=== PATIENT | male | born 1950 | race Caucasian/White ===

== ENCOUNTER 2021-02-23 10:07 | Outpatient (REF) | payer MEDICARE, SELFPAY | END 2021-02-23 10:08 | disposition home or self-care (01) | LOC: HO.BBR 10:07 | PROVIDERS: Visit Provider Internal Medicine Medical Oncology | DX: Z13.89 Encounter for screening for other disorder (principal) ==

== ENCOUNTER 2021-03-12 10:05 | Outpatient (REF) | payer MEDICARE, SELFPAY | END 2021-03-12 10:06 | disposition home or self-care (01) | LOC: HO.BBR 10:05 | PROVIDERS: Visit Provider Internal Medicine Medical Oncology | DX: Z13.89 Encounter for screening for other disorder (principal) ==

== ENCOUNTER 2021-07-16 14:08 | Outpatient (REF) | payer MEDICARE, SELFPAY | END 2021-07-16 14:09 | disposition home or self-care (01) | LOC: HO.BBR 14:08 | PROVIDERS: Visit Provider Internal Medicine Medical Oncology | DX: Z13.89 Encounter for screening for other disorder (principal) ==

== ENCOUNTER 2021-08-09 12:44 | Outpatient (REF) | payer MEDICARE, SELFPAY | END 2021-08-09 12:45 | disposition home or self-care (01) | LOC: HO.BBR 12:44 | PROVIDERS: Visit Provider Internal Medicine Medical Oncology | DX: Z13.89 Encounter for screening for other disorder (principal) ==

== ENCOUNTER → 2021-10-01 13:51 | Outpatient (BNV) | payer MEDICARE, SELFPAY | PROVIDERS: Visit Provider Internal Medicine | DX: E83.110 Hereditary hemochromatosis (principal) | CPT/HCPCS: 99203; 99213; 99214; G2211 ==

== ENCOUNTER 2021-10-22 10:52 | Outpatient (REF) | payer MEDICARE, SELFPAY | END 2021-10-22 10:53 | disposition home or self-care (01) | LOC: HO.BBR 10:52 | PROVIDERS: Visit Provider Internal Medicine | DX: Z13.89 Encounter for screening for other disorder (principal) ==

== ENCOUNTER 2021-12-18 13:55 | Outpatient (REF) | payer MEDICARE, SELFPAY | END 2021-12-18 13:56 | disposition home or self-care (01) | LOC: HO.BBR 13:55 | PROVIDERS: Visit Provider Internal Medicine | DX: Z13.89 Encounter for screening for other disorder (principal) ==

== ENCOUNTER 2022-02-13 13:55 | Outpatient (REF) | payer MEDICARE, SELFPAY | END 2022-02-13 13:56 | disposition home or self-care (01) | LOC: HO.BBR 13:55 | PROVIDERS: Visit Provider Internal Medicine | DX: Z13.89 Encounter for screening for other disorder (principal) ==

== ENCOUNTER 2022-04-15 11:23 | Outpatient (REF) | payer MEDICARE, SELFPAY | END 2022-04-15 11:24 | disposition home or self-care (01) | LOC: HO.BBR 11:23 | PROVIDERS: Visit Provider Internal Medicine | DX: Z13.89 Encounter for screening for other disorder (principal) ==

== ENCOUNTER 2022-06-18 13:55 | Outpatient (REF) | payer MEDICARE, SELFPAY | END 2022-06-18 13:56 | disposition home or self-care (01) | LOC: HO.BBR 13:55 | PROVIDERS: Visit Provider Internal Medicine | DX: Z13.89 Encounter for screening for other disorder (principal) ==

== ENCOUNTER 2022-11-12 09:06 | Outpatient (REF) | payer MEDICARE, SELFPAY | END 2022-11-12 09:07 | disposition home or self-care (01) | LOC: HO.BBR 09:06 | PROVIDERS: Visit Provider Internal Medicine | DX: Z13.89 Encounter for screening for other disorder (principal) ==

== ENCOUNTER 2022-12-19 12:39 | Outpatient (REF) | payer MEDICARE, SELFPAY | END 2022-12-19 12:40 | disposition home or self-care (01) | LOC: HO.BBR 12:39 | PROVIDERS: Visit Provider Internal Medicine | DX: Z13.89 Encounter for screening for other disorder (principal) ==

== ENCOUNTER 2023-01-16 13:13 | Outpatient (REF) | payer MEDICARE, SELFPAY | END 2023-01-16 13:14 | disposition home or self-care (01) | LOC: HO.BBR 13:13 | PROVIDERS: Visit Provider Internal Medicine | DX: Z13.89 Encounter for screening for other disorder (principal) ==

== ENCOUNTER 2023-02-18 13:42 | Outpatient (REF) | payer MEDICARE, SELFPAY | END 2023-02-18 13:43 | disposition home or self-care (01) | LOC: HO.BBR 13:42 | PROVIDERS: Visit Provider Internal Medicine | DX: Z13.89 Encounter for screening for other disorder (principal) ==

== ENCOUNTER 2023-04-01 14:09 | Outpatient (REF) | payer MEDICARE, SELFPAY | END 2023-04-01 14:10 | disposition home or self-care (01) | LOC: HO.BBR 14:09 | PROVIDERS: Visit Provider Internal Medicine | DX: Z13.89 Encounter for screening for other disorder (principal) ==

== ENCOUNTER 2023-07-21 11:50 | Outpatient (REF) | payer MEDICARE, SELFPAY | END 2023-07-21 11:51 | disposition home or self-care (01) | LOC: HO.BBR 11:50 | PROVIDERS: PCP Internal Medicine; Visit Provider Internal Medicine | DX: Z13.89 Encounter for screening for other disorder (principal) ==

== ENCOUNTER 2023-09-30 14:08 | Outpatient (REF) | payer MEDICARE, SELFPAY | END 2023-09-30 14:09 | disposition home or self-care (01) | LOC: HO.BBR 14:08 | PROVIDERS: PCP Internal Medicine; Visit Provider Internal Medicine | DX: Z13.89 Encounter for screening for other disorder (principal) ==

== ENCOUNTER 2023-10-29 12:38 | Outpatient (REF) | payer MEDICARE, SELFPAY | END 2023-10-29 12:39 | disposition home or self-care (01) | LOC: HO.BBR 12:38 | PROVIDERS: PCP Internal Medicine; Visit Provider Internal Medicine | DX: Z13.89 Encounter for screening for other disorder (principal) ==

== ENCOUNTER 2023-11-26 12:42 | Outpatient (REF) | payer MEDICARE, SELFPAY | END 2023-11-26 12:43 | disposition home or self-care (01) | LOC: HO.BBR 12:42 | PROVIDERS: PCP Internal Medicine; Visit Provider Internal Medicine | DX: Z13.89 Encounter for screening for other disorder (principal) ==

== ENCOUNTER 2023-12-25 13:55 | Outpatient (REF) | payer MEDICARE, SELFPAY | END 2023-12-25 13:56 | disposition home or self-care (01) | LOC: HO.BBR 13:55 | PROVIDERS: PCP Internal Medicine; Visit Provider Internal Medicine | DX: Z13.89 Encounter for screening for other disorder (principal) ==

== ENCOUNTER 2024-01-23 13:44 | Outpatient (REF) | payer MEDICARE, SELFPAY | END 2024-01-23 13:45 | disposition home or self-care (01) | LOC: HO.BBR 13:44 | PROVIDERS: PCP Internal Medicine; Visit Provider Internal Medicine | DX: Z13.89 Encounter for screening for other disorder (principal) ==

== ENCOUNTER 2024-02-24 13:55 | Outpatient (REF) | payer MEDICARE, SELFPAY | END 2024-02-24 13:56 | disposition home or self-care (01) | LOC: HO.BBR 13:55 | PROVIDERS: PCP Internal Medicine; Visit Provider Internal Medicine | DX: Z13.89 Encounter for screening for other disorder (principal) ==

== ENCOUNTER 2024-03-26 10:12 | Outpatient (REF) | payer MEDICARE, SELFPAY | END 2024-03-26 10:13 | disposition home or self-care (01) | LOC: HO.BBR 10:12 | PROVIDERS: PCP Internal Medicine; Visit Provider Internal Medicine | DX: Z13.89 Encounter for screening for other disorder (principal) ==

== ENCOUNTER 2024-04-21 11:02 | Outpatient (REF) | payer MEDICARE, SELFPAY | END 2024-04-21 11:03 | disposition home or self-care (01) | LOC: HO.BBR 11:02 | PROVIDERS: PCP Internal Medicine; Visit Provider Internal Medicine | DX: Z13.89 Encounter for screening for other disorder (principal) ==

== ENCOUNTER 2024-06-16 13:54 | Outpatient (REF) | payer MEDICARE, SELFPAY | END 2024-06-16 13:55 | disposition home or self-care (01) | LOC: HO.BBR 13:54 | PROVIDERS: PCP Internal Medicine; Visit Provider Internal Medicine | DX: Z13.89 Encounter for screening for other disorder (principal) ==

== ENCOUNTER 2024-08-19 08:59 | Outpatient (REF) | payer MEDICARE, SELFPAY | END 2024-08-19 09:00 | disposition home or self-care (01) | LOC: HO.BBR 08:59 | PROVIDERS: PCP Internal Medicine; Visit Provider Internal Medicine | DX: Z13.89 Encounter for screening for other disorder (principal) ==

== ENCOUNTER 2025-06-21 11:17 | Outpatient (REF) | payer MEDICARE, SELFPAY ==
--- OUTSIDE RECORDS SUMMARY | 2025-03-16 07:00 | XMS_ITS ---
Author Organization [facility] Address [address] [place] [phone] Care Team Providers Care Email Marketing Manager Name Role Phone Kymberly Garcia Primary Care Provider Kannan Arndt [phone] REASON FOR VISIT ROF Encounters Encounter Location Date Provider Diagnosis [address] [id number] 03/16/2025 Kannan Arndt Plan Of Treatment Next Appt Details Provider Name:Kymberly montes de oca, 08/10/2025 11:30:00 AM, [address] [place] [address], [phone], Provider Name:Kannan Arndt, 11/02/2025 09:00:00 AM, [address] [place] [address], [phone], Progress Notes * Chauncey KHANDOB:1950 (75 yo M)Acc No.[id number]:03/16/2025 Progress Notes Patient: Chauncey LR Provider: Rocio Arndt ND :1950 A ge:74 Y S ex:Male Date:03/16/2025 Address:[address] [id number] Pcp:Kymberly Garcia Subjective: * Chief Complaints: * 1 . ROF. * Medical History: Objective: * Vitals: Assessment: Plan: * Treatment: * * Electronic signature of Danny Arndt ND on 06/21/2025 at 12:13 PM EDT Sign off status: Pending * Provider: Rocio Arndt, ND Date: 0 03/16/2025 Generated for Douglas ahuja/Airam/Ubaldo on: 0 06/21/2025 12:13 PM EDT
--- OUTSIDE RECORDS SUMMARY | 2025-06-21 12:13 | XMS_ITS | Encounter Summary ---
Author Organization [facility] Address [address] [place] [phone] Phone Care Team Providers Care Clinical Nurse Reviewer Name Role Phone Morenita Sandoval MD Primary Care Provider Reason for Referral * MRI/CAT Scan - Closed Specialty Diagnoses / Procedures Referred By Contac t Referred To Contact Procedures MRI Abdomen Outside (No Interpretation) System, Provider Not In, [facility] [address] [place] [address] Referral ID Status Reason Start Date Expiration Date Visits Re quested Visits Authorized [id number] Closed 08/21/2018 08/21/2019 1 1 Encounter Details Date Type Department Care Team ([facility] Contact Info) Description 08/21/2018 Ancillary Orders [facility] Radiology [address] [place] [address] System, Provider Not In, [place] [address] Social History Tobacco Use Types Packs/Day Years Used Date Smoking Tobacco: Former Cigarettes 3 8 0 04/09/1968 - 04/09/1976 Smokeless Tobacco: Never Comments:quit 40 years ago Alcohol Use Standard Drinks/Week Comments Yes 13 (1 standard drink = 0.6 oz pu re alcohol) Sex and Gender Information Value Date Recorded Sex Assigned at Not on file Legal Sex Male 3:17 PM EST Gender Identity Not on file Sexual Orientation Not on file documented as of this encounter Plan of Treatment Upcoming Encounters Date Type Department Care Team (Late st Contact Info) Description 08/02/2025 9:50 AM EDT Office Visit [facility]ty [address] [place] [address] Tre Braxton MD [address] [place] [address], [facility] [address] [place] [address] [email or web address] documented as of this encounter Results * MRI Abdomen Outside (No Interpretation) (08/18/2018 12:00 AM EDT) Narrative PARESH - 08/21/2018 9:37 AM EDT This study is for PACS storage only and not for interpretation. us Provider Not In System PhD IMG OUTSIDE IMAGING W /OUT INTERPRETATION Final Result [facility] documented in this encounter Visit Diagnoses Not on filedocumented in this encounter Care Teams Clinical Nurse Reviewer Relationship Specialty Start Date End Date Morenita Sandoval MD [address] [place] [address] PCP - General Internal Medicine 11/11/17 documented as of this encounter Additional Source Comments The information contained in this document represents components of the legal health record. It is not the complete legal health record.[facility]
--- OUTSIDE RECORDS SUMMARY | 2025-06-21 12:13 | XMS_ITS | Clinical Summary ---
Author Organization [facility] Address [address] [phone] Phone Care Team Providers Care Diesel Power Mechanic Name Role Phone Morenita Sandoval MD Primary Care Provider [phone] Allergies Active Allergy Reactions Criticality Noted Date Comments Bactrim (Sulfamethoxazole-Trimethoprim) Fever 11/21/2015 Medications cholecalciferol 4,000 unit Tab Take 4,000 Units by mouth daily. Active glucosamine-surinder droitin 500-400 mg Cap Take 1 capsule by mouth 2 (two) times a day. Active therapeutic multivitamin tablet Take 1 tablet by mouth daily. Active acetaminophen (TYLENOL) 325 mg tablet Take 2 tablets (650 mg total) by mouth every 4 (four) hours as needed for mild pain. 0 6 Active b complex vitamins capsule Take 1 capsule by mouth daily. Active omega 7-iad-lve-fish oil 1,000 mg (120 mg-180 mg) Cap Take 1 capsule by mouth daily. Active saw palmetto 160 mg Cap Take 2 capsules by mouth 2 (two) times a day. 180 each 3 8 Active ciprofloxacin HCl (CIPRO) 500 MG tablet TAKE 1 TABLET (500 MG TOTAL) BY MOUTH ONCE FOR 1 DOSE. 0 9 Active tamsulosin (FLOMAX) 0.4 mg Cap TAKE ONE CAPSULE BY MOUTH EVERY DAY 90 capsule 3 9 Active Additional Information Patient not taking.Reported on 02/25/2023 finasteride (PROSCAR) 5 mg tablet Take 1 tablet (5 mg total) by mouth daily. 90 tablet 3 0 Active Additional Information Patient not taking.Reported on 02/25/2023 losartan (COZAAR) 25 MG tablet Take 25 mg by mouth daily. Active tadalafiL (CIALIS) 5 MG tabletIndication s:benign prostatic hyperplasia with lower urinary tract sx,erectile dysfunction Take 1 tab po qd Indications: enlarged prostate with urination problem, the inability to have an erection 90 tablet 3 4 Active Active Problems Problem Noted Date Diagnosed Date Preop exam for internal medicine 02/02/2016 Assessment & Plan (02/02/2016 11:26 AM EDT): Cardiac Risk Estimation: Patient has no unstable cardiac disease, revised cardiac risk index = 0, risk for major cardiac complications is 0.4%, Guillaume/NSQIP estimated risk of perioperative LA or cardiac arrest is <1%, can proceed to surgery without further cardiac risk stratification. Deep vein thrombosis prophylaxis: per orthopedic protocol Right knee pain 02/02/2016 Overview (02/02/2016): Right knee, medial aspect, worse in past three months, on aleve prn. Osteoarthritis 02/02/2016 Overview (02/02/2016): hands Hemochromatosis 02/02/2016 Overview (02/02/2016): On phlebotomy every two months since 2007 Assessment & Plan (02/02/2016 11:27 AM EDT): Patient has no known complications such as liver or cardiac disease. Obstructive sleep apnea on CPAP 02/02/2016 Overview (02/02/2016): On CPAP since 2005 Assessment & Plan (02/02/2016 11:27 AM EDT): Increased risk for hypoxia, hypercapnia, please minimize sedation and narcotics. Encounters Date Type Department Care Team Description 04/22/2025 11:35 AM EDT - 04/22/2025 11:59 PM EDT Hospital Encounter [facility] Phlebotomy [address] [place] [address] Discharge Disposition: Home or Self Care 04/22/2025 Telephone [facility] Urology [address] [address] Mike Lin 04/21/2025 Telephone [facility] Urology [address] [address] Bailee Lewis trouble urinating from Last 3 Months Family History Medical History Relation Comments Hemochromatosis Brother Hemochromatosis Sister Deep vein thrombosis Neg Hx Relation Status Comments Brother Alive Sister Alive Social History Tobacco Use Types Packs/Day Years Used Date Smoking Tobacco: Former Cigarettes 3 8 0 04/09/1968 - 04/09/1976 Smokeless Tobacco: Never Tobacco Cessation:Counseling Given: Not Answered Comments:quit 40 years ago Alcohol Use Standard Drinks/Week Comments Yes 13 (1 standard drink = 0.6 oz pu re alcohol) Education Answer Date Recorded Are you interested in more education? Not on gwendolyn e 02/21/2023 Are you concerned about learning? Not on file 02/21/2023 No 02/21/2023 No 02/21/2023 Digital Access Answer Date Recorded No 03/23/2023 No 03/23/2023 Reliable internet access at home? Not on file 03/23/2023 Device with a working camera? Not on file Sex and Gender Information Value Date Recorded Sex Assigned at Not on file Legal Sex Male 3:17 PM EST Gender Identity Not on file Sexual Orientation Not on file Last Filed Vital Signs Vital Sign Reading Time Taken Comments Blood Pressure 146/73 07/20/2024 9:21 AM EDT Pulse 66 07/20/2024 9:21 AM EDT Temperature 36.6 C (97.9 F) 02/13/2016 11:09 AM EDT Respiratory Rate 16 02/13/2016 11:09 AM EDT Oxygen Saturation 97% 02/13/2016 11:26 AM EDT Inhaled Oxygen Concentration - - Weight 88.5 kg (195 lb) 07/20/2024 9:21 AM EDT Height 177.8 cm (5' 10 ) 07/20/2024 9:21 AM EDT Body Mass Index 27.98 07/20/2024 9:21 AM EDT Plan of Treatment Upcoming Encounters Date Type Department Care Team (Late st Contact Info) Description 08/02/2025 9:50 AM EDT Office Visit [facility]ispecialty [address] [place] [address] Tre Braxton MD [address] [place] [address] [address] [place] [address] [email or web address] Health Maintenance Due Date Last Done Comments Adult Td,Tdap Booster 1950 CREATININE LEVEL 1950 LIPID PANEL 1949 POTASSIUM LEVEL 1950 DEPRESSION SCREENING 1961 HEPATITIS C SCREENING 1967 PNEUMOCOCCAL VACCINES (50+ years) (1 of 1 - PCV) 1999 ZOSTER VACCINES (1 of 2) 1999 RSV VACCINE (1 - 1-dose 75+ series) 2024 COVID-19 VACCINE (4 - 2023-2 5 season) 2024 09/11/2021, 01/08/2021, 12/11/2020 SMOKING STATUS SCREENING (On ce After 26 Yrs) Completed 07/20/2024 HEPATITIS A VACCINES Aged Out No long er eligible based on patient's age to complete this topic HIB VACCINES Aged Out No longer eligi ble based on patient's age to complete this topic MENINGOCOCCAL VACCINES (ACWY) Aged Out No longer eligible based on patient's age to complete this topic MENINGOCOCCAL VACCINES (B) Aged Out N o longer eligible based on patient's age to complete this topic Medical Devices Not on file Procedures Procedure Name Priority Date/Time Associated Diagnosis Comments URINALYSIS Routine 04/22/2025 12:53 PM EDT Dysuria URINE CULTURE Routine 04/22/2025 12:53 PM EDT Dysuria from Last 3 Months Results * Urine Culture (04/22/2025 12:53 PM EDT) Special Requests None 04/22/2025 12:27 PM EDT [facility] Urine Culture NO GROWTH 04/23/2025 1:02 PM EDT [facility] Urine (Urine) 04/22/2025 12: 53 PM EDT 04/22/2025 4:23 PM EDT Tre Brxaton MD MICROBIOLOGY - GENERAL ORDERA BLES Final Result Performing Organization Address [facility] de Phone Number [facility] [address] [place] [address] [facility] [address] [place] [address] * Urinalysis (04/22/2025 12:53 PM EDT) COLOR Yellow Yellow [facility] CLARITY Clear Clear [facility] GLUCOSE Negative Negative [facility] BILI Negative Negative [facility] KETONES Negative Negative [facility] SPECIFIC GRAVITY 1.016 1.003 - 1.035 [facility] BLOOD Negative Negative [facility] PH 6.5 4.5 - 8.0 [facility] Protein-UA Negative Negative [facility] UROBILINOGEN Negative Negative [facility] NITRITE Negative Negative [facility] Leukocyte esterase, ur Negative Negative [facility] Urine (Urine) 04/22/2025 12: 53 PM EDT 04/22/2025 1:00 PM EDT Tre Braxton MD URINE ORDERABLES Final Result Performing Organization Address [facility] de Phone Number [facility] [address] [place] [address] from Last 3 Months Insurance [employer] PPO MEDICARE REPLACEMENT [employer] PPO MEDICARE REPLACEMENT [employer] PPO MEDICARE REPLACEMENT [employer] PPO MEDICARE REPLACEMENT [employer] PPO MEDICARE REPLACEMENT [employer] PPO MEDICARE REPLACEMENT [employer] PPO MEDICARE REPLACEMENT [employer] PPO MEDICARE REPLACEMENT [employer] PPO MEDICARE REPLACEMENT Care Teams Diesel Power Mechanic Relationship Specialty Start Date End Date Morenita Sandoval MD [address] [facility] [address] [place] [address] PCP - General Internal Medicine 11/11/17 Additional Source Comments The information contained in this document represents components of the legal health record. It is not the complete legal health record.[facility]
--- OUTSIDE RECORDS SUMMARY | 2025-06-21 12:13 | XMS_ITS | Clinical Summary ---
Author Organization [address] Address [address] [place] [address] Care Team Providers Care Prune Washer Name Role Phone Pcp, Does Not Have A Primary Care Provider Unava ilable Allergies Active Allergy Reactions Criticality Noted Date Comments Sulfamethoxazole-Trimethoprim Fever 2015 Medications losartan (COZAAR) 25 mg tablet Take 1 tablet (25 mg total) by mouth daily. Active cholecalciferol , vitamin D3, 100 mcg (4,000 unit) Tab Take 4,000 Units by mouth daily. Active DOCOSAHEXAENOIC ACID ORAL Take 1 capsule by mouth daily. Active multivitamin (THERAGRAN) tablet Take 1 tablet by mouth daily. Active tadalafiL (CIALIS) 5 mg tablet Take 1 tablet (5 mg total) by mouth daily. Active VITAMIN B COMPLEX ORAL Take 1 capsule by mouth daily. Active Family History Relation Name Status Comments Father Mother Social History Tobacco Use Types Packs/Day Years Used Date Smoking Tobacco: Never Smokeless Tobacco: Never Tobacco Cessation:Counseling Given: Not Answered Alcohol Use Standard Drinks/Week Comments Yes 0 (1 standard drink = 0.6 oz pur e alcohol) Sex and Gender Information Value Date Recorded Sex Assigned at Not on file Legal Sex Male 1:31 PM EST Gender Identity Not on file Sexual Orientation Not on file Last Filed Vital Signs Vital Sign Reading Time Taken Comments Blood Pressure 132/70 12/07/2024 9:13 AM EST Pulse 84 12/07/2024 9:13 AM EST Temperature 37.2 C (99 F) 12/07/2024 9:13 AM EST Respiratory Rate 16 12/07/2024 9:13 AM EST Oxygen Saturation 95% 12/07/2024 9:13 AM EST Inhaled Oxygen Concentration - - Weight 90.7 kg (200 lb) 12/07/2024 9:13 AM EST Height - - Body Mass Index - - Plan of Treatment Health Maintenance Due Date Last Done Comments HIV screening 1962 Hepatitis C screening 1967 Tetanus adult (Td q 10,TDAP once) 1969 Lipid disorder screening 1989 Diabetes screening 1994 Pneumococcal Vaccine (50+ years) (1 of 1 - PCV) 1999 Shingles vaccine (Shingrix) (1 of 2 - Shingrix (RZV) 2 Dose Standard Series) 1999 RSV Immunization (1 - 1-dose 75+ series) 2024 Covid-19 vaccine series (2023- season) 2024 01/08/2021, 12/11/2020 Influenza vaccine 06/27/2025 Colon cancer screening, Colonoscopy Discontinued Meningococcal Vaccine Aged Out No nicki tracy eligible based on patient's age to complete this topic Insurance [facility] Care Teams Prune Washer Relationship Specialty Start Date End Date Pcp, Does Not Have A PCP - General 12/07/24
--- OUTSIDE RECORDS SUMMARY | 2025-06-21 12:13 | XMS_ITS | Encounter Summary ---
Author Organization [facility] Address [address] [facility] [address] [place] [address] Phone Care Team Providers Care Outreach Director Name Role Phone Morenita Sandoval MD Primary Care Provider [phone] Reason for Visit * Reason Onset Date Comments trouble urinating 04/21/2025 Encounter Details Date Type Department Care Team ([facility] st Contact Info) Description 04/21/2025 Telephone [facility] Urology [address] [facility] [address] [place] [address] Bailee Lewis [address] [place] [address] [email or web address] trouble urinating Social History Tobacco Use Types Packs/Day Years [...] on file documented as of this encounter Progress Notes * Tara Campbell RN - 04/21/2025 1:20 PM EDT Situation Chauncey Vazquez Kaylin called today to report trouble urinating Background Chauncey is being follow for BPH Assessment/Action Patient reports following; UTI Symptoms: When did symptoms start? Few days ago Dysuria- Yes=1 Increased frequency of urination- Yes=1 Urgency to urinate - Yes=1 Hematuria - No=0 Cloudy or foul-smelling urine- No=0 Suprapubic pain or lower abdominal discomfort - No=0 Flank pain No=0 Fever - No=0 Nausea/ Vomiting - No=0 Trouble urinating or unable to urinate - Yes=1 Stream is weaker than normal Change in BM's - No=0 Medication/Interventions Patient is still taking his cialis Teaching The following instructions reviewed. Increase fluids, monitor symptoms Recommendation/Response Pt advised to hydrate/ increase fluids Pt will call with any changes Pt going to the lab to leave urine Monitor for worsening sx and to f/u [facility] ED precautions reviewed ( thick bloody urine, unable to void/ retaining, fever, n/v and unable to keep fluids down) documented in this encounter Plan of Treatment Upcoming Encounters Date Type Department Care Team (Late st Contact Info) Description 08/02/2025 9:50 AM EDT Office Visit [address] [address] Tre Braxton MD [address] [place] [phone] [email or web address] documented as of this encounter Results * Urine Culture (04/22/2025 12:53 PM EDT) Special Requests None 04/22/2025 12:27 PM EDT [facility] Urine Culture NO GROWTH 04/23/2025 1:02 PM EDT [facility] Urine (Urine) 04/22/2025 12: 53 PM EDT 04/22/2025 4:23 PM EDT Tre Braxton MD MICROBIOLOGY - GENERAL ORDERA BLES Final Result Performing Organization Address City/[facility] Co de Phone Number [facility] [address] [place] [address] [facility] [address] [place] [address] * Urinalysis (04/22/2025 12:53 PM EDT) COLOR Yellow Yellow [facility] CLARITY Clear Clear [facility] GLUCOSE Negative Negative [facility] BILI Negative Negative [facility] KETONES Negative Negative [facility] SPECIFIC GRAVITY 1.016 1.003 - 1.035 [facility] BLOOD Negative Negative [facility] PH 6.5 4.5 - 8.0 [facility] Protein-UA Negative Negative [facility] UROBILINOGEN Negative Negative [facility] NITRITE Negative Negative [facility] Leukocyte esterase, ur Negative Negative [facility] Urine (Urine) 04/22/2025 12: 53 PM EDT 04/22/2025 1:00 PM EDT Tre Braxton MD URINE ORDERABLES Final Result Performing Organization Address [facility] [[email or web address]] de Phone Number [facility] [address] [place] [address] documented in this encounter Visit Diagnoses Diagnosis Dysuria- Primary documented in this encounter Care Teams Outreach Director Relationship Specialty Start Date End Date Morenita Sandoval MD [address] [place] [address] PCP - General Internal Medicine 11/11/17 documented as of this encounter Additional Source Comments The information contained in this document represents components of the legal health record. It is not the complete legal health record.[facility]
--- OUTSIDE RECORDS SUMMARY | 2025-06-21 12:13 | XMS_ITS | Clinical Summary ---
Author Organization [facility] Address [address] [place] [address] Care Team Providers Care Weaver Needle Loom Name Role Phone Kannan Arndt ND Primary Care Provider [phone] Allergies Active Allergy Reactions Criticality Noted Date Comments Sulfamethoxazole-Trimethoprim 2017 Medications Medication Sig Dispensed Refills Start Date End Date Status Multiple Vitamins-Minerals (MULTIVITAMIN PO) Take by mouth daily. 0 Active Cholecalciferol (VITAMIN D) 2000 units tablet Take 2,000 Units by mouth daily. 0 Active [place]-3 Fatty Acids (FISH OIL PO) Take by mouth daily. 0 Active HAW[place]ORN PO Take by mouth daily. 0 Active Saw [place], Serenoa repens, (SAW PALMETTO PO) Take by mouth daily. 0 Active Active Problems Problem Noted Date Diagnosed Date Hereditary hemochromatosis 01/28/2018 Obstructive sleep apnea on CPAP 02/02/2016 Overview: Overview: On CPAP since 2005 Last Assessment & Plan: Increased risk for hypoxia, hypercapnia, please minimize sedation and narcotics. Osteoarthritis 02/02/2016 Overview: Overview: hands Social History Tobacco Use Types Packs/Day Years Used Date Smoking Tobacco: Former Smokeless Tobacco: Never Alcohol Use Standard Drinks/Week Comments Yes 0 (1 standard drink = 0.6 oz pur e alcohol) Sex and Gender Information Value Date Recorded Sex Assigned at Not on file Gender Identity Not on file Sexual Orientation Not on file Job Start Date Occupation Industry Not on file Not on file Not on file Last Filed Vital Signs Vital Sign Reading Time Taken Comments Blood Pressure 137/79 03/30/2021 11:37 AM EDT Pulse 70 03/30/2021 11:37 AM EDT Temperature 36.4 C (97.5 F) 03/30/2021 11:37 AM EDT Respiratory Rate - - Oxygen Saturation 99% 03/30/2021 11:37 AM EDT Inhaled Oxygen Concentration - - Weight 90.5 kg (199 lb 9.6 oz) 03/30/2021 11:37 AM EDT Height 180.3 cm (5' 11 ) 03/30/2021 11:37 AM EDT Body Mass Index 27.84 03/30/2021 11:37 AM EDT Plan of Treatment Health Maintenance Due Date Last Done Comments Hepatitis C Screening 1950 COVID-19 Vaccine (#1) 1949 Depression Screening 1961 Preventative Health Evaluation 1967 DTap / Tdap / Td (1 - Tdap) 1968 Shingrix-Zoster Vaccine (1 of 2) 1999 Fall Risk Assessment 2014 Pneumococcal Vaccine (1 of 1 - PCV) 2014 RSV Adult > 60+ Yrs or Pregn ant (1 - 1-dose 75+ series) 2024 Influenza Vaccine (#1) 2025 Hepatitis B Vaccines Aged Out No long er eligible based on patient's age to complete this topic RSV Ped < 20 months Aged Out No longe r eligible based on patient's age to complete this topic Care Teams Weaver Needle Loom Relationship Specialty Start Date End Date Kannan Arndt ND [address] [place] [address] PCP - General Pediatrics 07/26/24
--- OUTSIDE RECORDS SUMMARY | 2025-06-21 12:13 | XMS_ITS | Patient Health Record ---
Author Organization [facility] Address [address], [place] [id number] Care Team Providers Care Cognos Bi Developer Name Role Phone Joannetavon Kymberly Primary Care Provider [phone] Kannan Arndt Unavailable [phone] Miguelito Allred Unavailable [phone] Allergies Allergen (clinical drug ingredient) Drug/Non Drug Allergy documented on EMR Reaction Allergy Type Onset Date Status sulfamethoxazole / trimethoprim Bactrim Unknown Drug Allergy Active Results Component Value Reference Range Notes CARDIO IQ(R) INSULIN RESISTA NCE PANEL WITH SCORE Reviewed date:05/18/2025 04:12:25 PM Interpretation: Performing Lab:EZ, [facility],[address] [facility] Ciarra Cantu MD,PhD,PRASANNA Notes/Report: Received Date: 0; 0; 0; 0; 0; 0; 0 FASTING:YES FASTING: YES INSULIN, INTACT, LC/MS/MS 6 < OR = 16 uIU/m L Insulin concentration can be converted to pmol/L by applying the conversion factor: 1 uIU/mL = 5.97 pmol/L For additional information, please refer to http://education.[employer].com/faq/DKW390 (This link is being provided for informational/educational purposes only.) This test was developed and its analytical performance characteristics have been determined by [facility]. It has not been cleared or approved by the FDA. This assay has been validated pursuant to the CLIA regulations and is used for clinical purposes. C-PEPTIDE, LC/MS/MS 2.27 0.68-2.16 ng/mL INSULIN RESISTANCE SCORE 34 < OR = 66 Insulin Sensitive < 33; Impaired Insulin Sensitivity 33-66; Insulin Resistant >66 A score below 33 is optimal. The insulin resistance score correlates with steady state glucose levels achieved during an insulin suppression test, a standard research test for insulin resistance. The score is based on insulin and C-peptide results (Emmanuel F, Chong D, Maico ARROYO, et al. Insulin resistance probability scores for apparently healthy individuals. J Endocr Soc. 2018;2(9):1206-1575). For additional information, please refer to http://education.PingCo.com/faq/RXQ542 (This link is being provided for informational/educational purposes only.) This test was developed and its analytical performance characteristics have been determined by [facility]. It has not been cleared or approved by the FDA. This assay has been validated pursuant to the CLIA regulations and is used for clinical purposes. CARDIO IQ(R) ADVANCED LIPID PANEL AND INFLAMMATION PANEL Reviewed date:05/18/2025 04:12:25 PM Interpretation: Performing Lab:[facility] [place] [address], [address], [id number] Abner Almodovar Notes/Report: Received Date: 0; 0; 0; 0; 0; 0; 0 FASTING:YES FASTING: YES CHOLESTEROL, TOTAL 190 <200 mg/dL HDL CHOLESTEROL 51 >39 mg/dL TRIGLYCERIDES 115 <150 mg/dL LDL-CHOLESTEROL 117 <100 mg/dL (calc) Desirable range <100 mg/dL for primary prevention; <70 mg/dL for patients with CHD or diabetic patients with >= 2 CHD risk factors. LDL-C is now calculated using the Joshua-Gibson calculation, which is a validated novel method providing better accuracy than the Friedewald equation in the estimation of LDL-C. Joshua SS et al. MJ. 2013;310(19): 8026-4303 (http://education.Covertix.Calendly/faq/BZN200) LDL-C is now calculated using the Joshua-Gibson calculation, which is a validated novel method providing better accuracy than the Friedewald equation in the estimation of LDL-C. Joshua PORRAS et al. MJ. 2013;310(19): 1524-4733 (http://education.Covertix.com/faq/YJQ593) CHOL/HDLC RATIO 3.7 <5.0 calc NON HDL CHOLESTEROL 139 <130 mg/dL (calc) For patients with diabetes plus 1 major ASCVD risk factor, treating to a non-HDL-C goal of <100 mg/dL (LDL-C of <70 mg/dL) is considered a therapeutic option. For patients with diabetes plus 1 major ASCVD risk factor, treating to a non-HDL-C goal of <100 mg/dL (LDL-C of <70 mg/dL) is considered a therapeutic option. LDL PARTICLE NUMBER 1916 <1138 nmol/L Relative Risk: Optimal <1138; Moderate 9837-1746; High >1409. Male and Female Reference Range: 1016 to 2185 nmol/L. LDL SMALL 492 <142 nmol/L Relative Risk: Optimal <142; Moderate 142-219; High >219. Male Reference Range: 123 to 441 nmol/L; Female Reference Range: 115 to 386 nmol/L. LDL MEDIUM 398 <215 nmol/L Relative Risk: Optimal <215; Moderate 215-301; High >301. Male Reference Range: 167 to 485 nmol/L; Female Reference Range: 121 to 397 nmol/L. HDL LARGE 6293 >6729 nmol/L Relative Risk: Optimal >6729; Moderate 1376-0876; High <5353. Male Reference Range: 4334 to 25011 nmol/L; Female Reference Range: 5038 to 427[address] nmol/L. LDL PATTERN B A Pattern Relative Risk: Optimal Pattern A; High Pattern B. Reference Range: Pattern A. LDL PEAK SIZE 212.7 >222.9 Angstrom This test was developed and its analytical performance characteristics have been determined by [facility]. It has not been cleared or approved by the U.S. Food and Drug Administration. This assay has been validated pursuant to the CLIA regulations and is used for clinical purposes. Relative Risk: Optimal >222.9; Moderate 222.9-217.4; High <217.4. Male and Female Reference Range: 216 to 234.3 Angstrom. Adult cardiovascular event risk category cut points (optimal, moderate, high) are based on an adult [place] reference population plus two large cohort study populations. Association between lipoprotein subfractions and cardiovascular events is based on Elayne et al. ATVB.2009;29:1975. For additional information, please refer to http://education.PingCo.com/faq/IYU501 (This link is being provided for informational/educational purposes only.) APOLIPOPROTEIN B 99 <90 mg/dL Reference Range <90 Risk Category: Optimal <90 Moderate 90-129 High > or = 130 A desirable treatment target may be <80 mg/dL or lower depending on the risk category of the patient including patients on lipid lowering therapies, patients with ASCVD, diabetes with >1 risk factors, Stage 3 or greater CKD with albuminuria, or heterozygous familial hypercholesterolemia. ApoB relative risk category cut points are based on AACE/BRETT and ACC/AHA recommendations (Ruben SM, et al. 2019. doi:10.1016/j.jacc.2018.11. 002; Melissa Y, et al. 2020. doi:10.0242/WM-3582-5394). LIPOPROTEIN (a) <10 <75 nmol/L Verified by repeat analysis. Risk: Optimal <75 nmol/L; Moderate 75-125 nmol/L; High >125 nmol/L. Cardiovascular event risk category cut points (optimal, moderate, high) are based on Jimbo Degroot JACC 2017;69:692-711. HS CRP 1.3 <1.0 mg/L Reference Range: Optimal <1.0 mg/L, according to Gato MEDLEY et al. Endocr Pract.2017;23(Suppl 2):1-87. The AHA/CDC Guidelines recommend hs-CRP ranges for identifying Relative Cardiovascular Risk in patients ages >17 years: <1.0 mg/L Lower Relative Cardiovascular Risk; 1.0-3.0 mg/L Average Relative Cardiovascular Risk; 3.1-10.0 mg/L Higher Relative Cardiovascular Risk. If result is between 3.1 and 10.0 mg/L, consider retesting in 1-2 weeks to exclude a benign transient elevation secondary to infection or inflammation from the baseline CRP value. Persistent elevations of >10.0 mg/L upon retesting may be associated with infection and inflammation. The AHA/CDC recommendations are based on Hsieh TA, Mily GA, Jah RW, et al. Markers of inflammation and cardiovascular disease: application to clinical and public health practice: A statement for healthcare professionals from the Centers for Disease Control and Prevention and the [place] [employer]. Circulation 2003; 107(3): 499-511. For ages >17 Years: hs-CRP mg/L Risk According to AHA/CDC Guidelines <1.0 Lower relative cardiovascular risk. 1.0-3.0 Average relative cardiovascular risk. 3.1-10.0 Higher relative cardiovascular risk. Consider retesting in 1 to 2 weeks to exclude a benign transient elevation in the baseline CRP value secondary to infection or inflammation. >10.0 Persistent elevation, upon retesting, may be associated with infection and inflammation. Мария TA, Mily GA, Jah RW, et al. Markers of inflammation and cardiovascular disease: application to clinical and public health practice: A statement for healthcare professionals from the Centers for Disease Control and Prevention and the [place] [employer]. Circulation 2003; 107(3): 499-511. LP PLA2 ACTIVITY 109 <124 nmol/min/mL Relative Risk: Optimal <=123 nmol/min/mL; High >123 nmol/min/mL. This test was developed and its analytical performance characteristics have been determined by [facility]. It has not been cleared or approved by the FDA. This assay has been validated pursuant to the CLIA regulations and is used for clinical purposes. See Note 1 Note 1 This test was developed and its analytical performance characteristics have been determined by [facility]. It has not been cleared or approved by the FDA. This assay has been validated pursuant to the CLIA regulations and is used for clinical purposes. PSA, TOTAL WITH REFLEX TO PS A, FREE Reviewed date:05/18/2025 04:12:25 PM Interpretation: Performing Lab:[facility] [address] [place], [place] [id number] Sakshi Kendrick M.D. Notes/Report: Received Date: 0; 0; 0; 0; 0; 0; 0 FASTING:YES FASTING: YES PSA, TOTAL 6.4 < OR = 4.0 ng/mL FERRITIN Reviewed date:05/18/2025 04:12:25 PM Interpretation: Performing Lab:ARSENIO1, [address] [place], [place] [id number] Sakshi Kendrick M.D. Notes/Report: Received Date: 0; 0; 0; 0; 0; 0; 0 FASTING:YES FASTING: YES FERRITIN 65 24-380 ng/mL CARDIO IQ(TM) HEMOGLOBIN A1c Reviewed date:05/18/2025 04:12:25 PM Interpretation: Performing Lab:Fam, [facility], [address], [id number] Kirstenkashif Lorraine Scooby Notes/Report: Received Date: 0; 0; 0; 0; 0; 0; 0 FASTING:YES FASTING: YES HEMOGLOBIN A1c 5.7 <5.7 % For someone without known diabetes, a hemoglobin A1c value between 5.7% and 6.4% is consistent with prediabetes and should be confirmed with a follow-up test. For someone with known diabetes, a value <7% indicates that their diabetes is well controlled. A1c targets should be individualized based on duration of diabetes, age, co-morbid conditions and other considerations. This assay result is consistent with an increased risk of diabetes. Currently, no consensus exists regarding use of hemoglobin A1c for diagnosis of diabetes in children. This test was performed on the Meena franklin c503 platform. Effective 12/30/2023, a change in test platforms from the [employer] to the Meena franklin c503 may have shifted HbA1c results compared to historical results. Based on laboratory validation testing conducted at [facility], the Meena platform relative to the Acosta platform had an average increase in HbA1c value of <=0.3%. This difference is within accepted variability established by the National Glycohemoglobin Standardization Program. Note that not all individuals will have had a shift in their results and direct comparisons between historical and current results for testing conducted on different platforms is not recommended. CBC (INCLUDES DIFF/PLT) Reviewed date:05/18/2025 04:12:25 PM Interpretation: Performing Lab:NL1, [facility] [address] Sakshi Kendrick M.D. Notes/Report: Received Date: 0; 0; 0; 0; 0; 0; 0 FASTING:YES FASTING: YES WHITE BLOOD CELL COUNT 6.5 3.8-10.8 Thousand/ uL RED BLOOD CELL COUNT 4.38 4.20-5.80 Million/uL HEMOGLOBIN 16.2 13.2-17.1 g/dL HEMATOCRIT 47.3 38.5-50.0 % MCV 108.0 80.0-100.0 fL MCH 37.0 27.0-33.0 pg MCHC 34.2 32.0-36.0 g/dL For adults, a slight decrease in the calculated MCHC value (in the range of 30 to 32 g/dL) is most likely not clinically significant; however, it should be interpreted with caution in correlation with other red cell parameters and the patient's clinical condition. RDW 13.3 11.0-15.0 % PLATELET COUNT 182 140-400 Thousand/uL MPV 10.6 7.5-12.5 fL ABSOLUTE NEUTROPHILS 4232 0660-6980 cells/uL ABSOLUTE LYMPHOCYTES 7577 026-8396 cells/uL ABSOLUTE MONOCYTES 618 200-950 cells/uL ABSOLUTE EOSINOPHILS 78 15-500 cells/uL ABSOLUTE BASOPHILS 20 0-200 cells/uL NEUTROPHILS 65.1 LYMPHOCYTES 23.9 MONOCYTES 9.5 EOSINOPHILS 1.2 BASOPHILS 0.3 IRON, TOTAL Reviewed date:05/18/2025 04:12:25 PM Interpretation: Performing Lab:NL1, [facility] [address] Sakshi Kendrick M.D. Notes/Report: Received Date: 0; 0; 0; 0; 0; 0; 0 FASTING:YES FASTING: YES IRON, TOTAL 205 50-180 mcg/dL COMPREHENSIVE METABOLIC PANE L Reviewed date:05/18/2025 04:12:24 PM Interpretation: Performing Lab:NL1 [facility] [address] Sakshi Kendrick M.D. Notes/Report: Received Date: 0; 0; 0; 0; 0; 0; 0 FASTING:YES FASTING: YES GLUCOSE 93 65-99 mg/dL Fasting reference interval UREA NITROGEN (BUN) 18 7-25 mg/dL CREATININE 1.03 0.70-1.28 mg/dL EGFR 76 > OR = 60 mL/min/1.73m2 BUN/CREATININE RATIO SEE NOTE: 6-22 (calc) Not Reported: BUN and Creatinine are within reference range. SODIUM 142 135-146 mmol/L POTASSIUM 4.7 3.5-5.3 mmol/L CHLORIDE 104 98-110 mmol/L CARBON DIOXIDE 29 20-32 mmol/L CALCIUM 9.6 8.6-10.3 mg/dL PROTEIN, TOTAL 6.9 6.1-8.1 g/dL ALBUMIN 4.4 3.6-5.1 g/dL GLOBULIN 2.5 1.9-3.7 g/dL (calc) ALBUMIN/GLOBULIN RATIO 1.8 1.0-2.5 (calc) BILIRUBIN, TOTAL 0.8 0.2-1.2 mg/dL ALKALINE PHOSPHATASE 42 35-144 U/L AST 18 10-35 U/L ALT 19 9-46 U/L CARDIO IQ(R) INSULIN RESISTA NCE PANEL WITH SCORE Reviewed date:08/03/2024 04:37:14 PM Interpretation: Performing Lab:[facility],[address] [facility] HospitalCA[address] Ciarra Cantu MD,PhD,PRASANNA Notes/Report: Received Date: 0; 0; 0; 0; 0; 0; 0; 0; 0; 0; 0; 0; 0 FASTING:YES FASTING: YES INSULIN, INTACT, LC/MS/MS 15 < OR = 16 uIU/m L Insulin concentration can be converted to pmol/L by applying the conversion factor: 1 uIU/mL = 5.97 pmol/L For additional information, please refer to http://education.PingCo.com/faq/ZSV839 (This link is being provided for informational/educational purposes only.) This test was developed and its analytical performance characteristics have been determined by [facility]. It has not been cleared or approved by FDA. This assay has been validated pursuant to the CLIA regulations and is used for clinical purposes. C-PEPTIDE, LC/MS/MS 2.45 0.68-2.16 ng/mL INSULIN RESISTANCE SCORE 76 < OR = 66 Insulin Sensitive < 33; Impaired Insulin Sensitivity 33-66; Insulin Resistant >66 A score below 33 is optimal. The insulin resistance score correlates with steady state glucose levels achieved during an insulin suppression test, a standard research test for insulin resistance. The score is based on insulin and C-peptide results (Emmanuel F, Chong D, Maico ARROYO, et al. Insulin resistance probability scores for apparently healthy individuals. J Endocr Soc. 2018;2(9):1174-1455). For additional information, please refer to http://education.PingCo.com/faq/UVQ855 (This link is being provided for informational/educational purposes only.) This test was developed and its analytical performance characteristics have been determined by [facility]. It has not been cleared or approved by FDA. This assay has been validated pursuant to the CLIA regulations and is used for clinical purposes. Cardio IQ(R) Oxidized LDL Reviewed date:08/03/2024 04:37:14 PM Interpretation: Performing Lab:[facility] [email or web address], [facility] [address], [id number] Ashwin Nova PhD,[facility] Notes/Report: FASTING: YES FASTING:YES 0; 0; 0; 0; 0; 0; 0; 0; 0; 0; 0; 0; 0 Received Date: OxLDL 57 <60 U/L Based on a recent study of an 'apparently healthy' and non-metabolic syndrome population(1), the following cut-offs have been defined for OxLDL: A cut-off of <60 U/L defines a population with a low relative risk of developing metabolic syndrome, a range of 60 to 69 U/L defines a population with a moderate relative risk (2.8 fold) and >=70 U/L defines a population with a high relative risk (3.5-fold). (Reference: 1-Lilibeth et al. MJ. 2008; 299: 6819-9921.) CARDIO IQ(R) ADVANCED LIPID PANEL AND INFLAMMATION PANEL Reviewed date:08/03/2024 04:37:14 PM Interpretation: Performing Lab:[facility] [email or web address], [facility] [address], [id number] Ashwin Nova PhD,[facility] Notes/Report: FASTING: YES FASTING:YES 0; 0; 0; 0; 0; 0; 0; 0; 0; 0; 0; 0; 0 Received Date: CHOLESTEROL, TOTAL 198 <200 mg/dL HDL CHOLESTEROL 54 >39 mg/dL TRIGLYCERIDES 114 <150 mg/dL LDL-CHOLESTEROL 122 <100 mg/dL (calc) Desirable range <100 mg/dL for primary prevention; <70 mg/dL for patients with CHD or diabetic patients with >= 2 CHD risk factors. LDL-C is now calculated using the Joshua-Gibson calculation, which is a validated novel method providing better accuracy than the Friedewald equation in the estimation of LDL-C. Ojshua SS et al. MJ. 2013;310(19): 0298-9232 (http://education.Covertix.Calendly/faq/LFX128) LDL-C is now calculated using the Joshua-Gibson calculation, which is a validated novel method providing better accuracy than the Friedewald equation in the estimation of LDL-C. Joshua SS et al. MJ. 2013;310(19): 6317-4180 (http://education.Covertix.Calendly/faq/VMI713) CHOL/HDLC RATIO 3.7 <5.0 calc NON HDL CHOLESTEROL 144 <130 mg/dL (calc) For patients with diabetes plus 1 major ASCVD risk factor, treating to a non-HDL-C goal of <100 mg/dL (LDL-C of <70 mg/dL) is considered a therapeutic option. For patients with diabetes plus 1 major ASCVD risk factor, treating to a non-HDL-C goal of <100 mg/dL (LDL-C of <70 mg/dL) is considered a therapeutic option. LDL PARTICLE NUMBER 1602 <1138 nmol/L Relative Risk: Optimal <1138; Moderate 6617-2412; High >1409. Male and Female Reference Range: 1016 to 2185 nmol/L. LDL SMALL 386 <142 nmol/L Relative Risk: Optimal <142; Moderate 142-219; High >219. Male Reference Range: 123 to 441 nmol/L; Female Reference Range: 115 to 386 nmol/L. LDL MEDIUM 335 <215 nmol/L Relative Risk: Optimal <215; Moderate 215-301; High >301. Male Reference Range: 167 to 485 nmol/L; Female Reference Range: 121 to 397 nmol/L. HDL LARGE 5182 >6729 nmol/L Relative Risk: Optimal >6729; Moderate 0428-5611; High <5353. Male Reference Range: 4334 to [address] nmol/L; Female Reference Range: 5038 to [address] nmol/L. LDL PATTERN B A Pattern Relative Risk: Optimal Pattern A; High Pattern B. Reference Range: Pattern A. LDL PEAK SIZE 217.1 >222.9 Angstrom This test was developed and its analytical performance characteristics have been determined by [facility]. It has not been cleared or approved by the U.S. Food and Drug Administration. This assay has been validated pursuant to the CLIA regulations and is used for clinical purposes. Relative Risk: Optimal >222.9; Moderate 222.9-217.4; High <217.4. Male and Female Reference Range: 216 to 234.3 Angstrom. Adult cardiovascular event risk category cut points (optimal, moderate, high) are based on an adult [place].S[place] reference population plus two large cohort study populations. Association between lipoprotein subfractions and cardiovascular events is based on Elayne et al. ATVB.2009;29:1975. For additional information, please refer to http://education.PingCo.com/faq/GAJ457 (This link is being provided for informational/educational purposes only.) APOLIPOPROTEIN B 101 <90 mg/dL Risk: Optimal <90 mg/dL; Moderate 90-119 mg/dL; High >= 120 mg/dL; Cardiovascular event risk category cut points (optimal, moderate, high) are based on National Lipid Association recommendations- Espino TA et al. J of Clin Lipid. 2015; 9: 129-169 and Gato PS et al. Endocr Pract. 2017;23(Suppl 2):1-87. LIPOPROTEIN (a) <10 <75 nmol/L Verified by repeat analysis. Risk: Optimal <75 nmol/L; Moderate 75-125 nmol/L; High >125 nmol/L. Cardiovascular event risk category cut points (optimal, moderate, high) are based on Jimbo Degroot JACC 2017;69:692-711. HS CRP 2.2 <1.0 mg/L Reference Range: Optimal <1.0 mg/L, according to Gato MEDLEY et al. Endocr Pract.2017;23(Suppl 2):1-87. The AHA/CDC Guidelines recommend hs-CRP ranges for identifying Relative Cardiovascular Risk in patients ages >17 years: <1.0 mg/L Lower Relative Cardiovascular Risk; 1.0-3.0 mg/L Average Relative Cardiovascular Risk; 3.1-10.0 mg/L Higher Relative Cardiovascular Risk. If result is between 3.1 and 10.0 mg/L, consider retesting in 1-2 weeks to exclude a benign transient elevation secondary to infection or inflammation from the baseline CRP value. Persistent elevations of >10.0 mg/L upon retesting may be associated with infection and inflammation. The AHA/CDC recommendations are based on Mily Walden, Jah العلي, et al. Markers of inflammation and cardiovascular disease: application to clinical and public health practice: A statement for healthcare professionals from the Centers for Disease Control and Prevention and the [place] [employer]. Circulation 2003; 107(3): 499-511. For ages >17 Years: hs-CRP mg/L Risk According to AHA/CDC Guidelines <1.0 Lower relative cardiovascular risk. 1.0-3.0 Average relative cardiovascular risk. 3.1-10.0 Higher relative cardiovascular risk. Consider retesting in 1 to 2 weeks to exclude a benign transient elevation in the baseline CRP value secondary to infection or inflammation. >10.0 Persistent elevation, upon retesting, may be associated with infection and inflammation. Mily Walden, Jah العلي, et al. Markers of inflammation and cardiovascular disease: application to clinical and public health practice: A statement for healthcare professionals from the Centers for Disease Control and Prevention and the [place] [employer]. Circulation 2003; 107(3): 499-511. LP PLA2 ACTIVITY 100 <124 nmol/min/mL This test was developed and its analytical performance characteristics have been determined by [facility]. It has not been cleared or approved by the U.S. Food and Drug Administration. This assay has been validated pursuant to the CLIA regulations and is used for clinical purposes. Relative Risk: Optimal <=123 nmol/min/mL; High >123 nmol/min/mL. See Note 1 Note 1 This test was developed and its analytical performance characteristics have been determined by [facility]. It has not been cleared or approved by the FDA. This assay has been validated pursuant to the CLIA regulations and is used for clinical purposes. CARDIO IQ(R) MYELOPEROXIDASE (MPO) Reviewed date:08/03/2024 04:37:14 PM Interpretation: Performing Lab:Fam, [facility].[address], [address], [id number] Ashwin Nova PhD,[facility] Notes/Report: Received Date: 0; 0; 0; 0; 0; 0; 0; 0; 0; 0; 0; 0; 0 FASTING:YES FASTING: YES MYELOPEROXIDASE 300 <470 pmol/L This test was developed and its analytical performance characteristics have been determined by [facility]. It has not been cleared or approved by the U.S. Food and Drug Administration. This assay has been validated pursuant to the CLIA regulations and is used for clinical purposes. Based on a high risk sub-population (N=920) defined as ambulatory stable patients without acute coronary syndrome who underwent elective diagnostic coronary angiography (1) and a reference range study of apparently healthy donors, we have defined the following cut-offs for MPO: A cut-off of <470 pmol/L defines an 'apparently healthy' population at optimal relative risk for a cardiovascular event, 470-539 pmol/L defines a population at moderate relative risk for a cardiovascular event (2-fold increased risk of MACE at 3 years), and > = 540 pmol/L defines a population with a high relative risk for a cardiovascular event. (Reference: 1. Devante et al. Am J Cardiol. 2013; 111:465-470 and personal communication with Devante et al). CARDIO IQ(TM) VITAMIN D, 25 HYDROXY, LC/MS/MS Reviewed date:08/03/2024 04:37:14 PM Interpretation: Performing Lab:John PARIKH/Nate SolanoRuss [id number] Karina Molina, [id number] Jac Diggs M.D.,PhD Notes/Report: Received Date: 0; 0; 0; 0; 0; 0; 0; 0; 0; 0; 0; 0; 0 FASTING:YES FASTING: YES VITAMIN D, 25-OH, TOTAL 31 30-100 ng/mL Vitamin D, 25-Hydroxy reports concentrations of two common forms, 25-OHD2 and 25-OHD3. 25-OHD3 indicates both endogenous production and supplementation. 25-OHD2 is an indicator of exogenous sources such as diet or supplementation. Therapy is based on measurement of Total 25-OHD, with levels <20 ng/mL indicative of Vitamin D deficiency, while levels between 20 ng/mL and 30 ng/mL suggest insufficiency. Optimal levels are > or = 30 ng/mL. For additional information, please refer to http://education.PingCo.com/faq/FIE339 (This link is being provided for informational/ educational purposes only.) VITAMIN D, 25-OH, D3 31 This test was developed and its analytical performance characteristics have been determined by [facility] [place]. It has not been cleared or approved by the U.S. Food and Drug Administration. This assay has been validated pursuant to the CLIA regulations and is used for clinical purposes. VITAMIN D, 25-OH, D2 <4 This test was developed and its analytical performance characteristics have been determined by [facility] [place]. It has not been cleared or approved by the U.S. Food and Drug Administration. This assay has been validated pursuant to the CLIA regulations and is used for clinical purposes. TSH W/REFLEX TO FT4 Reviewed date:08/03/2024 04:37:14 PM Interpretation: Performing Lab:[facility] [place], [place] [id number] Sakshi Kendrick M.D. Notes/Report: Received Date: 0; 0; 0; 0; 0; 0; 0; 0; 0; 0; 0; 0; 0 FASTING:YES FASTING: YES TSH W/REFLEX TO FT4 1.55 0.40-4.50 mIU/L PSA, TOTAL WITH REFLEX TO PS A, FREE Reviewed date:08/03/2024 04:37:14 PM Interpretation: Performing Lab:ARSENIO [facility] [id number] Sakshi Kendrick M.D. Notes/Report: Received Date: 0; 0; 0; 0; 0; 0; 0; 0; 0; 0; 0; 0; 0 FASTING:YES FASTING: YES PSA, TOTAL 9.2 < OR = 4.0 ng/mL FERRITIN Reviewed date:08/03/2024 04:37:14 PM Interpretation: Performing Lab:NL1, [facility] [id number] Skashi Kendrick M.D. Notes/Report: Received Date: 0; 0; 0; 0; 0; 0; 0; 0; 0; 0; 0; 0; 0 FASTING:YES FASTING: YES FERRITIN 11 24-380 ng/mL VITAMIN B12/FOLATE, SERUM PA ANGELA Reviewed date:08/03/2024 04:37:14 PM Interpretation: Performing Lab:NL1, [facility] [id number] Sakshi Kendrick M.D. Notes/Report: Received Date: 0; 0; 0; 0; 0; 0; 0; 0; 0; 0; 0; 0; 0 FASTING:YES FASTING: YES VITAMIN B12 467 892-4710 pg/mL FOLATE, SERUM 17.9 Reference Range Low: <3.4 Borderline: 3.4-5.4 Normal: >5.4 CARDIO IQ(TM)HOMOCYSTEINE CA RDIOVASCULAR Reviewed date:08/03/2024 04:37:14 PM Interpretation: Performing Lab:Linh, [facility] [place] [address], [address] [id number] Ashwin Nova PhD,[facility] Notes/Report: Received Date: 0; 0; 0; 0; 0; 0; 0; 0; 0; 0; 0; 0; 0 FASTING:YES FASTING: YES HOMOCYSTEINE 11.0 <11.4 umol/L Homocysteine is increased by functional deficiency of folate or vitamin B12. Testing for methylmalonic acid differentiates between these deficiencies. Other causes of increased homocysteine include renal failure, folate antagonists such as methotrexate and phenytoin, and exposure to nitrous oxide. Ofelia Rodríguez, et al. [employer]. 1999;131(5):331-9. Homocysteine is increased by functional deficiency of folate or vitamin B12. Testing for methylmalonic acid differentiates between these deficiencies. Other causes of increased homocysteine include renal failure, folate antagonists such as methotrexate and phenytoin, and exposure to nitrous oxide. Ofelia Rodríguez et al., [employer]. 1999;131(5):331-9. CARDIO IQ(TM) HEMOGLOBIN A1c Reviewed date:08/03/2024 04:37:14 PM Interpretation: Performing Lab:Fam, [facility], [address], [id number] Ashwin Nova PhD,[facility] Notes/Report: Received Date: 0; 0; 0; 0; 0; 0; 0; 0; 0; 0; 0; 0; 0 FASTING:YES FASTING: YES HEMOGLOBIN A1c 5.9 <5.7 % For someone without known diabetes, a hemoglobin A1c value between 5.7% and 6.4% is consistent with prediabetes and should be confirmed with a follow-up test. For someone with known diabetes, a value <7% indicates that their diabetes is well controlled. A1c targets should be individualized based on duration of diabetes, age, co-morbid conditions and other considerations. This assay result is consistent with an increased risk of diabetes. Currently, no consensus exists regarding use of hemoglobin A1c for diagnosis of diabetes in children. This test was performed on the Meena franklin c503 platform. Effective 12/30/2023, a change in test platforms from the [employer] to the Meena franklin c503 may have shifted HbA1c results compared to historical results. Based on laboratory validation testing conducted at [facility], the Meena platform relative to the [employer] platform had an average increase in HbA1c value of <=0.3%. This difference is within accepted variability established by the National Glycohemoglobin Standardization Program. Note that not all individuals will have had a shift in their results and direct comparisons between historical and current results for testing conducted on different platforms is not recommended. CBC (INCLUDES DIFF/PLT) Reviewed date:08/03/2024 04:37:13 PM Interpretation: Performing Lab:NL1, [facility] [id number] Sakshi Kendrick M.D. Notes/Report: Received Date: 0; 0; 0; 0; 0; 0; 0; 0; 0; 0; 0; 0; 0 FASTING:YES FASTING: YES WHITE BLOOD CELL COUNT 5.2 3.8-10.8 Thousand/ uL RED BLOOD CELL COUNT 4.22 4.20-5.80 Million/uL HEMOGLOBIN 13.4 13.2-17.1 g/dL HEMATOCRIT 41.0 38.5-50.0 % MCV 97.2 80.0-100.0 fL MCH 31.8 27.0-33.0 pg MCHC 32.7 32.0-36.0 g/dL For adults, a slight decrease in the calculated MCHC value (in the range of 30 to 32 g/dL) is most likely not clinically significant; however, it should be interpreted with caution in correlation with other red cell parameters and the patient's clinical condition. RDW 14.3 11.0-15.0 % PLATELET COUNT 170 140-400 Thousand/uL MPV 10.1 7.5-12.5 fL ABSOLUTE NEUTROPHILS 3052 2717-7854 cells/uL ABSOLUTE LYMPHOCYTES 2530 278-5915 cells/uL ABSOLUTE MONOCYTES 666 200-950 cells/uL ABSOLUTE EOSINOPHILS 130 15-500 cells/uL ABSOLUTE BASOPHILS 21 0-200 cells/uL NEUTROPHILS 58.7 LYMPHOCYTES 25.6 MONOCYTES 12.8 EOSINOPHILS 2.5 BASOPHILS 0.4 IRON, TOTAL Reviewed date:08/03/2024 04:37:13 PM Interpretation: Performing Lab:ARSENIO1, [facility] [id number] Sakshi Kendrick M.D. Notes/Report: Received Date: 0; 0; 0; 0; 0; 0; 0; 0; 0; 0; 0; 0; 0 FASTING:YES FASTING: YES IRON, TOTAL 64 50-180 mcg/dL COMPREHENSIVE METABOLIC PANE L Reviewed date:08/03/2024 04:37:13 PM Interpretation: Performing Lab:[facility], [facility] [address] Sakshi Kendrick M.D. Notes/Report: Received Date: 0; 0; 0; 0; 0; 0; 0; 0; 0; 0; 0; 0; 0 FASTING:YES FASTING: YES GLUCOSE 95 65-99 mg/dL Fasting reference interval UREA NITROGEN (BUN) 23 7-25 mg/dL CREATININE 1.01 0.70-1.28 mg/dL EGFR 78 > OR = 60 mL/min/1.73m2 BUN/CREATININE RATIO SEE NOTE: 6-22 (calc) Not Reported: BUN and Creatinine are within reference range. SODIUM 138 135-146 mmol/L POTASSIUM 4.2 3.5-5.3 mmol/L CHLORIDE 102 98-110 mmol/L CARBON DIOXIDE 28 20-32 mmol/L CALCIUM 9.1 8.6-10.3 mg/dL PROTEIN, TOTAL 6.3 6.1-8.1 g/dL ALBUMIN 4.2 3.6-5.1 g/dL GLOBULIN 2.1 1.9-3.7 g/dL (calc) ALBUMIN/GLOBULIN RATIO 2.0 1.0-2.5 (calc) BILIRUBIN, TOTAL 0.6 0.2-1.2 mg/dL ALKALINE PHOSPHATASE 44 35-144 U/L AST 17 10-35 U/L ALT 16 9-46 U/L PSA, FREE Reviewed date:05/18/2025 04:12:25 PM Interpretation: Performing Lab:NL1, [facility] [address] Sakshi Kendrick M.D. Notes/Report: Received Date: 0; 0; 0; 0; 0; 0; 0 FASTING:YES FASTING: YES PSA, FREE 1.6 PSA, % FREE 25 >25 % (calc) PSA(ng/mL) Free PSA(%) Estimated(x) Probability of Cancer(as%) 0-2.5 (*) Approx. 1 2.6-4.0(1) 0-27(2) 24(3) 4.1-10(4) 0-10 56 11-15 28 16-20 20 21-25 16 >or =26 8 >10(+) N/A >50 References:(1)Christinona et al.:Urology 60: 469-474 (2002) (2)Catalona et al.:J.Urol 168: 922-925 (2001) Free PSA(%) Sensitivity(%) Specificity(%) < or = 25 85 19 < or = 30 93 9 (3)Catalona et al.:MJ 277: 4320-8692 (1996) (4)Catalona et al.:MJ 279: 6578-4624 (1997) (x)These estimates vary with age, ethnicity, family history and HAROON results. (*)The diagnostic usefulness of % Free PSA has not been established in patients with total PSA below 2.6 ng/mL (+)In men with PSA above 10 ng/mL, prostate cancer risk is determined by total PSA alone. The Total PSA value from this assay system is standardized against the equimolar PSA standard. The test result will be approximately 20% higher when compared to the WHO-standardized Total PSA (Siemens assay). Comparison of serial PSA results should be interpreted with this fact in mind. PSA was performed using the [employer] [place] Immunoassay method. Values obtained from different assay methods cannot be used interchangeably. PSA levels, regardless of value, should not be interpreted as absolute evidence of the presence or absence of disease. PSA, FREE Reviewed date:08/03/2024 04:37:14 PM Interpretation: Performing Lab:NL1, [facility] [address] Sakshi Kendrick M.D. Notes/Report: Received Date: 0; 0; 0; 0; 0; 0; 0; 0; 0; 0; 0; 0; 0 FASTING:YES FASTING: YES PSA, FREE 2.1 PSA, % FREE 23 >25 % (calc) PSA(ng/mL) Free PSA(%) Estimated(x) Probability of Cancer(as%) 0-2.5 (*) Approx. 1 2.6-4.0(1) 0-27(2) 24(3) 4.1-10(4) 0-10 56 11-15 28 16-20 20 21-25 16 >or =26 8 >10(+) N/A >50 References:(1)Jackie et al.:Urology 60: 469-474 (2002) (2)Christinona et al.:J.Urol 168: 922-925 (2001) Free PSA(%) Sensitivity(%) Specificity(%) < or = 25 85 19 < or = 30 93 9 (3)Christinona et al.:MJ 277: 7373-9906 (1996) (4)Catalona et al.:MJ 279: 2243-3561 (1997) (x)These estimates vary with age, ethnicity, family history and HAROON results. (*)The diagnostic usefulness of % Free PSA has not been established in patients with total PSA below 2.6 ng/mL (+)In men with PSA above 10 ng/mL, prostate cancer risk is determined by total PSA alone. The Total PSA value from this assay system is standardized against the equimolar PSA standard. The test result will be approximately 20% higher when compared to the WHO-standardized Total PSA (Siemens assay). Comparison of serial PSA results should be interpreted with this fact in mind. PSA was performed using the [employer] [place] Immunoassay method. Values obtained from different assay methods cannot be used interchangeably. PSA levels, regardless of value, should not be interpreted as absolute evidence of the presence or absence of disease. 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) Diagnosis 2 Essential hypertensi on (I10) Diagnosis 3 Mixed hyperlipidemia (E78.2) Diagnosis 4 Coronary atheroscler osis due to calcified coronary lesion (I25.84) Referral Organization [facility] Referring Provider First Name Kymberly Referring Provider Last Name Jose Referring Provider Speciality [facility] Referred Provider Tiana Rutherford Referred Provider Specialty Cardiology Referral Priority Routine Medications Medication SIG (Take, Route, Frequency, Duration) Notes Start Date End Date Status Cialis 5 MG 1 tablet as needed O rally Once a day Active Losartan Potassium 25 MG 1 tablet Orally Once a day; Duration: 90 days Active Problems Problem Type SNOMED Code ICD Code Onset Dates Problem Status W/U Status Risk Notes Problem Vitamin D deficiency (43294772) Vitamin D deficiency, unspecified (E55.9) Active confirmed Problem 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 Problem Mixed hyperlipidemia (138470517) Mixed hyperlipidemia (E78.2) Active confirmed Problem Hereditary hemochromatosis (54798600) Hereditary hemochromatosis (E83.110) Active confirmed Problem Obstructive sleep apnea syndrome (disorder) (85552533) Obstructive sleep apnea (adult) (pediatric) (G47.33) Active confirmed Problem Atherosclerosis of coronary artery (971789165) Coronary atherosclerosis due to calcified coronary lesion (I25.84) Active confirmed Problem Lower urinary tract symptoms due to benign prostatic hypertrophy (46947983275518) Benign prostatic hyperplasia with lower urinary tract symptoms (N40.1) Active confirmed Problem Essential hypertension (59814486) Essential hypertension (I10) Active confirmed Vital Signs Heart Rate 74 /min 04/28/2025 Respiratory Rate 14 /min 04/28/2025 Oximetry 98 % 04/28/2025 Blood pressure diastolic 80 mm Hg 04/28/2025 Height 70 in 04/28/2025 Blood pressure systolic 130 mm Hg 04/28/2025 Weight 206 lbs 04/28/2025 BMI 29.55 kg/m2 04/28/2025 Encounters Encounter Location Date Provider Diagnosis [address] [id number] 07/22/2024 Kannan Arndt Mixed hyperlipidemia E78.2 ; Benign prostatic hyperplasia with lower urinary tract symptoms N40.1 ; Hereditary hemochromatosis E83.110 and Essential hypertension I10 [address] [id number] 09/02/2024 Kannan Arndt Mixed hyperlipidemia E78.2 ; Other abnormal glucose R73.09 ; Hereditary hemochromatosis E83.110 and Benign prostatic hyperplasia with lower urinary tract symptoms N40.[address] [id number] 04/28/2025 Kannan Arndt Coronary atherosclerosis due to calcified coronary lesion I25.84 ; Mixed hyperlipidemia E78.2 ; Other abnormal glucose R73.09 ; Hereditary hemochromatosis E83.110 and Benign prostatic hyperplasia with lower urinary tract symptoms N40.[address] [id number] 05/12/2025 Kymberly Garcia Essential hypertension I10 ; Coronary atherosclerosis due to calcified coronary lesion I25.84 ; Mixed hyperlipidemia E78.2 ; Obstructive sleep apnea (adult) (pediatric) G47.33 ; Hereditary hemochromatosis E83.110 ; Impaired glucose tolerance (oral) R73.02 and Elevated prostate specific antigen [PSA] R97.[address] [id number] 07/22/2024 Kannan Arndt [address] [id number] 07/22/2024 Miguelito Allred Mixed hyperlipidemia E78.2 ; Other abnormal glucose R73.09 ; Overweight E66.3 ; Benign prostatic hyperplasia with lower urinary tract symptoms N40.1 ; Obstructive sleep apnea (adult) (pediatric) G47.33 ; Family history of ischemic heart disease and other diseases of the circulatory system Z82.49 ; Family history of diabetes mellitus Z83.3 ; Hereditary hemochromatosis E83.110 ; Other fatigue R53.83 ; Vitamin D deficiency, unspecified E55.9 and Homocystinuria E72.[address] [id number] 07/27/2024 Kannan Arndt [address] [id number] 09/02/2024 Miguelito Allred Mixed hyperlipidemia E78.2 ; Hereditary hemochromatosis E83.110 ; Homocystinuria E72.11 ; Essential hypertension I10 and Other abnormal glucose R73.[address] [id number] 11/10/2024 Kannan Arndt [address] [id number] 06/01/2025 Kymberly Garcia [address] [id number] 06/17/2025 Kymberly Gracia [address] [id number] 05/13/2025 Kannan Arndt Assessments Encounter Date Diagnosis (ICD Code) Assessment Notes Treatment Notes Treatment Clinical Notes Section Notes 05/12/2025 Essential hypertension (ICD-10 - I10) Hypertension/e levated CAC 634 indicated CAD in setting of hyperlipidemia - blood pressure controlled on regimen, continue - referred to cardiology for elevated CAC, prior cardiac workup in [place] negative no visit in 5 years - grade 3 systolic ejection murmur, reported previous ECHO, he reported normal ARTURO on CPAP - controlled, continue CPAP Hemochromatosi s - followed by hematology - continue therapeutic phlebotomy. 05/12/2025 Coronary atherosclerosis due to calcified coronary lesion (ICD-10 - I25.84) Hypertension/e levated CAC 634 indicated CAD in setting of hyperlipidemia - blood pressure controlled on regimen, continue - referred to cardiology for elevated CAC, prior cardiac workup in [place] negative no visit in 5 years - grade 3 systolic ejection murmur, reported previous ECHO, he reported normal ARTURO on CPAP - controlled, continue CPAP Hemochromatosi s - followed by hematology - continue therapeutic phlebotomy. 09/02/2024 Mixed hyperlipidemia (ICD-10 - E78.2) 04/28/2025 Coronary atherosclerosis due to calcified coronary lesion (ICD-10 - I25.84) ROV/ROF in office. cardio labs stable. thusfar declines rx lipid management. discussed referral for cardiology consult to establish care. Recommend discuss at upcoming PCP apt 07/22/2024 Mixed hyperlipidemia (ICD-10 - E78.2) 07/22/2024 Benign prostatic hyperplasia with lower urinary tract symptoms (ICD-10 - N40.1) 07/22/2024 Mixed hyperlipidemia (ICD-10 - E78.2) 09/02/2024 Mixed hyperlipidemia (ICD-10 - E78.2) 09/02/2024 Other abnormal glucose (ICD-10 - R73.09) 09/02/2024 Hereditary hemochromatosis (ICD-10 - E83.110) 07/22/2024 Other abnormal glucose (ICD-10 - R73.09) 07/22/2024 Hereditary hemochromatosis (ICD-10 - E83.110) 04/28/2025 Mixed hyperlipidemia (ICD-10 - E78.2) ROV/ROF in office. cardio labs stable. thusfar declines rx lipid management. discussed referral for cardiology consult to establish care. Recommend discuss at upcoming PCP apt 09/02/2024 Hereditary hemochromatosis (ICD-10 - E83.110) 05/12/2025 Mixed hyperlipidemia (ICD-10 - E78.2) Hypertension/e levated CAC 634 indicated CAD in setting of hyperlipidemia - blood pressure controlled on regimen, continue - referred to cardiology for elevated CAC, prior cardiac workup in [place] negative no visit in 5 years - grade 3 systolic ejection murmur, reported previous ECHO, he reported normal ARTURO on CPAP - controlled, continue CPAP Hemochromatosi s - followed by hematology - continue therapeutic phlebotomy. 05/12/2025 Obstructive sleep apnea (adult) (pediatric) (ICD-10 - G47.33) Hypertension/e levated CAC 634 indicated CAD in setting of hyperlipidemia - blood pressure controlled on regimen, continue - referred to cardiology for elevated CAC, prior cardiac workup in [place] negative no visit in 5 years - grade 3 systolic ejection murmur, reported previous ECHO, he reported normal ARTURO on CPAP - controlled, continue CPAP Hemochromatosi s - followed by hematology - continue therapeutic phlebotomy. 04/28/2025 Other abnormal glucose (ICD-10 - R73.09) ROV/ROF in office. cardio labs stable. thusfar declines rx lipid management. discussed referral for cardiology consult to establish care. Recommend discuss at upcoming PCP apt 07/22/2024 Essential hypertension (ICD-10 - I10) 07/22/2024 Overweight (ICD-10 - E66.3) 09/02/2024 Benign prostatic hyperplasia with lower urinary tract symptoms (ICD-10 - N40.1) 09/02/2024 Homocystinuria (ICD-10 - E72.11) 04/28/2025 Hereditary hemochromatosis (ICD-10 - E83.110) ROV/ROF in office. cardio labs stable. thusfar declines rx lipid management. discussed referral for cardiology consult to establish care. Recommend discuss at upcoming PCP apt 07/22/2024 Benign prostatic hyperplasia with lower urinary tract symptoms (ICD-10 - N40.1) 09/02/2024 Essential hypertension (ICD-10 - I10) 05/12/2025 Hereditary hemochromatosis (ICD-10 - E83.110) Hypertension/e levated CAC 634 indicated CAD in setting of hyperlipidemia - blood pressure controlled on regimen, continue - referred to cardiology for elevated CAC, prior cardiac workup in [place] negative no visit in 5 years - grade 3 systolic ejection murmur, reported previous ECHO, he reported normal ARTURO on CPAP - controlled, continue CPAP Hemochromatosi s - followed by hematology - continue therapeutic phlebotomy. 09/02/2024 Other abnormal glucose (ICD-10 - R73.09) 04/28/2025 Benign prostatic hyperplasia with lower urinary tract symptoms (ICD-10 - N40.1) ROV/ROF in office. cardio labs stable. thusfar declines rx lipid management. discussed referral for cardiology consult to establish care. Recommend discuss at upcoming PCP apt 07/22/2024 Obstructive sleep apnea (adult) (pediatric) (ICD-10 - G47.33) 07/22/2024 Family history of ischemic heart disease and other diseases of the circulatory system (ICD-10 - Z82.49) 05/12/2025 Impaired glucose tolerance (oral) (ICD-10 - R73.02) Hypertension/e levated CAC 634 indicated CAD in setting of hyperlipidemia - blood pressure controlled on regimen, continue - referred to cardiology for elevated CAC, prior cardiac workup in [place] negative no visit in 5 years - grade 3 systolic ejection murmur, reported previous ECHO, he reported normal ARTURO on CPAP - controlled, continue CPAP Hemochromatosi s - followed by hematology - continue therapeutic phlebotomy. 05/12/2025 Elevated prostate specific antigen [PSA] (ICD-10 - R97.20) Hypertension/e levated CAC 634 indicated CAD in setting of hyperlipidemia - blood pressure controlled on regimen, continue - referred to cardiology for elevated CAC, prior cardiac workup in [place] negative no visit in 5 years - grade 3 systolic ejection murmur, reported previous ECHO, he reported normal ARTURO on CPAP - controlled, continue CPAP Hemochromatosi s - followed by hematology - continue therapeutic phlebotomy. 07/22/2024 Family history of diabetes mellitus (ICD-10 - Z83.3) 07/22/2024 Hereditary hemochromatosis (ICD-10 - E83.110) 07/22/2024 Other fatigue (ICD-10 - R53.83) 07/22/2024 Vitamin D deficiency, unspecified (ICD-10 - E55.9) 07/22/2024 Homocystinuria (ICD-10 - E72.11) 08/25/2024 Other 35 minutes spent on patient care including: -preparing to see the patient by reviewing past charts, past treatment plans, current and past labs -obtaining and/or reviewing separately obtained history -performing a medically appropriate examination and/or evaluation -counseling and educating the patient and/or family on diagnostic results, impression, recommendations, risk/benefit, instructions, risk factor reduction, and education on condition -recommending supplement usage, tests, or procedures -documenting clinical information in patients chart -independently interpreting results and communicating results to the patient and/or patients family for care coordination 07/22/2024 Other 60 minutes spent on patient care including: -preparing to see the patient by reviewing past charts, past treatment plans, current and past labs -obtaining and/or reviewing separately obtained history -performing a medically appropriate examination and/or evaluation -counseling and educating the patient and/or family on diagnostic results, impression, recommendations, risk/benefit, instructions, risk factor reduction, and education on condition -recommending supplement usage, tests, or procedures -documenting clinical information in patients chart -independently interpreting results and communicating results to the patient and/or patients family for care coordination 09/02/2024 Other 35 minutes spent on patient care including: -preparing to see the patient by reviewing past charts, past treatment plans, current and past labs -obtaining and/or reviewing separately obtained history -performing a medically appropriate examination and/or evaluation -counseling and educating the patient and/or family on diagnostic results, impression, recommendations, risk/benefit, instructions, risk factor reduction, and education on condition -recommending supplement usage, tests, or procedures -documenting clinical information in patients chart -independently interpreting results and communicating results to the patient and/or patients family for care coordination 04/28/2025 Other 35 minutes spent on patient care including: -preparing to see the patient by reviewing past charts, past treatment plans, current and past labs -obtaining and/or reviewing separately obtained history -performing a medically appropriate examination and/or evaluation -counseling and educating the patient and/or family on diagnostic results, impression, recommendations, risk/benefit, instructions, risk factor reduction, and education on condition -recommending supplement usage, tests, or procedures -documenting clinical information in patients chart -independently interpreting results and communicating results to the patient and/or patients family for care coordination ROV/ROF in office. cardio labs stable. thusfar declines rx lipid management. discussed referral for cardiology consult to establish care. Recommend discuss at upcoming PCP apt Plan Of Treatment Pending Test Test Name Order Date IRON, TIBC AND FERRITIN PANEL 05/12/2025 COMPREHENSIVE METABOLIC PANEL 05/12/2025 CARDIO IQ(TM) HEMOGLOBIN A1c 05/12/2025 PSA, TOTAL WITH REFLEX TO PSA, FREE 04/26 CARDIO IQ(R) ADVANCED LIPID PANEL AND IN FLAMMATION PANEL 05/12/2025 CBC (H/H, RBC, INDICES, WBC, PLT) (REFL) 05/12/2025 CARDIO IQ(R) INSULIN RESISTANCE PANEL WI TH SCORE 05/12/[address] Score 07/22/2024 Next Appt Details Provider Name:Kymberly montes de oca, 08/10/2025 11:30:00 AM, [address] [place] [address], [phone], Provider Name:Kannan Arndt, 11/02/2025 09:00:00 AM, [address] [place] [address], [place], [place], [phone], Insurance Providers Payer Name Payer Address Payer Phone Subscriber Number Group Number Insured Name Patient Relationship to Insured Coverage Start Date Coverage End Date [employer] [address] [place] [address] [id number] Chauncey Ewing Self - patient is the insured Medical (General) History Medical History History ICD Code 2023 Melanoma. Followed by derm Hemochromatosis. Followed by heme BPH. Followed by urology Surgical History Surgery Date(Month/Year) Melanoma removal, chest 11/2023 meniscal repair 2013
--- OUTSIDE RECORDS SUMMARY | 2025-06-21 12:13 | XMS_ITS ---
Author Name [facility] Organization Unknown History of Medication Use Medication Directions Dispensed Refills Start Date End Date Stat us cholecalciferol, vitamin D3, 100 mcg (4,000 unit) Tab Take 4,000 Units by mouth daily. active DOCOSAHEXAENOIC ACID ORAL Take 1 capsule by mouth daily. active losartan (COZAAR) 25 mg tablet Take 1 tablet (25 mg total) by mouth daily. active multivitamin (THERAGRAN) tablet Take 1 tablet by mouth daily. active tadalafiL (CIALIS) 5 mg tablet Take 1 tablet (5 mg total) by mouth daily. active Allergies Allergen Reaction Severity Comment Documented Date Source Statu s SULFAMETHOXAZOLE-TRIMETHOP RIM FEVER 11/21/2015 [facility] active SULFAMETHOXAZOLE / TRIMETHOPRIM [facility] Problems Problem Status Onset Date Problem Type Date of Resoluti on Source Bronchitis active EncounterDiagnosisAct [facility] Encounters Encounter Type Encounter Reason Primary Diagnosis Location Date Ambulatory Bronchitis, not specified as acute or chronic Bronchitis, not specified as acute or chronic [facility] 12/07/2024 [facility] 09/02/2024 [facility] 08/26/2024 [facility] 07/27/2024 [facility] 07/22/2024 [facility] 04/20/2024 Care Team Organization Name Specialty Phone Email Start Date End Da te [facility] [place] [facility] 04/08/2025 [facility] ADT 04/08/2025 [facility] [place] 03/28/2025 03/30/2025 [facility] 12/07/2024 [facility] 04[facility]21/2024 [facility] [employer] 12/30/2023 03/28/2024 [facility] 09/02/20232024 [facility] 06/06/20232024
--- OUTSIDE RECORDS SUMMARY | 2025-06-21 12:13 | XMS_ITS | Clinical Summary ---
Author Organization [facility] Address [address] [place] [address] Care Team Providers Care Doll Wig Maker Rooted Hair Name Role Phone Unavailable Primary Care Provider Unavailabl e Social History Tobacco Use Types Packs/Day Years Used Date Smoking Tobacco: Never Assessed Sex and Gender Information Value Date Recorded Sex Assigned at Not on file Legal Sex Male 12:17 PM EDT Gender Identity Not on file Sexual Orientation Not on file Plan of Treatment Health Maintenance Due Date Last Done Comments Advance Care Planning 1950 Hepatitis C Virus Screening 1950 DTaP/Tdap/Td Vaccines (1 - Tdap) 1968 Pneumococcal Vaccines 50+ (1 of 1 - PCV) 1999 Zoster (Shingles) Vaccine (1 of 2) 1999 RSV Vaccine 60 years and old er and Patients (1 - 1-dose 75+ series) 2024 COVID-19 Vaccine (2023-2 5 season) 2024 Hepatitis B Vaccines Aged Out No long er eligible based on patient's age to complete this topic
--- OUTSIDE RECORDS SUMMARY | 2025-06-21 12:13 | XMS_ITS | Encounter Summary ---
Author Organization [facility] Address [address] [address] Phone Care Team Providers Care Meter Repairer Helper Name Role Phone Morenita Sandoval MD Primary Care Provider Encounter Details Date Type Department Care Team (Late Contact Info) Description 08/21/2018 Procedure [facility] Radiology [address] [place] [address] Social History Tobacco Use Types Packs/Day Years [...] Encounters Date Type Department Care Team (Late Contact Info) Description 08/02/2025 9:50 AM EDT [facility] [address] [place] [address] Tre Braxton MD [address] [place] [id number] [email or web address] documented as of this encounter Visit Diagnoses Not on filedocumented in this encounter Care Teams Meter Repairer Helper Relationship Specialty Start Date End Date Jaime, Morenita Niurka, MD [address] [address] PCP - General Internal Medicine 11/11/17 documented as of this encounter Additional Source Comments The information contained in this document represents components of the legal health record. It is not the complete legal health record.[facility]
== END 2025-06-21 11:18 | disposition home or self-care (01) ==
LOC: HO.BBR 11:17
PROVIDERS: PCP Internal Medicine; Visit Provider Internal Medicine
DX: Z13.89 Encounter for screening for other disorder (principal)

== ENCOUNTER 2025-08-17 11:04 | Outpatient (REF) | payer MEDICARE, SELFPAY | END 2025-08-17 11:05 | disposition home or self-care (01) | LOC: HO.BBR 11:04 | PROVIDERS: Visit Provider Internal Medicine | DX: Z13.89 Encounter for screening for other disorder (principal) ==